=== PATIENT | male | born 1965 | race Caucasian/White ===

== ENCOUNTER 2018-08-03 11:38 | Observation (INO) | payer BC, MEDICARE ==
--- NOTE | 2018-08-03 12:09 | PCM.HP ---
H&P History of Present Illness - General Date of Service: 08/03/18 Admit Problem/Dx: Admission Diagnosis/Problem Admission Diagnosis/Problem Acute kidney injury Source of Information: Patient History Limitations: Reports: No Limitations - History of Present Illness Initial Comments - Free Text/Narative: Doris is a 52-year-old male with past medical history of hypertension, fracture status post surgery with foreign body in place in 2002. The patient is a direct admit from clinic because of elevated creatinine. Patient said he has been well until Thursday when he started having nausea, vomiting, diarrhea. His stool was watery with no blood or mucus. No fever or chills. He had several bowel movements. His oral intake decreased significantly. He could hardly hold down anything. Diarrhea and vomiting resolved on Thursday. Currently he only has dry heave. On 07/30 he saw his PCP and labs were done. His creatinine bumped up to 4.1 from 1.0. Patient was encouraged to drink more fluids and go to the ER if not feeling well. He was seen at follow up today. Repeat creatinine was 2.2. Diarrhea and vomiting has resolved, he c/o nausea, dry heaves and weakness. Hospitalist was consulted for admission for further management. Patient denies fever, chills, abdominal pain, diarrhea, constipation, skin rash. He denies difficulty with voiding. Labs from clinic; creatinine 2.2, BUN 34, potassium 3.9 , sodium 145. Duration of Symptoms: Reports: Day(s):, Improving Location: Reports: Abdomen Quality: Reports: Ache Severity: Mild Improves with: Reports: None Worsens with: Reports: None Associated Symptoms: Reports: No Other Symptoms, Loss of Appetite, Malaise, Nausea/Vomiting, Weakness - Related Data Allergies/Adverse Reactions: Allergies Allergy/AdvReac Type Severity Reaction Status Date / Time No Known Allergies Allergy Verified 08/03/18 12:04 Home Medications: Home Meds Metoprolol Succinate 50 mg PO BID 11/04/13 [History] oxyCODONE 5 mg PO BID PRN 11/04/13 [History] Ibuprofen 800 mg PO Q6HR PRN 08/03/18 [History] Ondansetron [Zofran] 4 mg PO Q8H PRN 08/03/18 [History] Social & Family History - Living Situation & Occupation Living situation: Reports: Occupation: Disabled H&P Review of Systems - Review of Systems: Review Of Systems: See Below General: Reports: Malaise, Weakness, Decreased Appetite HEENT: Reports: No Symptoms Pulmonary: Reports: No Symptoms Cardiovascular: Reports: No Symptoms Gastrointestinal: Reports: Nausea (dry heaves), Other Genitourinary: Reports: No Symptoms Musculoskeletal: Reports: No Symptoms Skin: Reports: No Symptoms Psychiatric: Reports: No Symptoms Neurological: Reports: No Symptoms Hematologic/Lymphatic: Reports: No Symptoms Immunologic: Reports: No Symptoms Exam - Exam Exam: See Below - Exam Quality Assessment: DVT Prophylaxis General: Alert, Oriented, 4 HEENT: PERRLA, Hearing Intact, Mucosa Moist & [place], Nares Patent, Normal Nasal Septum, Posterior Pharynx Clear, Conjunctiva Clear, EOMI, EACs Clear, TMs Clear Neck: Supple, Trachea Midline, 2 Lungs: Clear to Auscultation, Normal Respiratory Effort Cardiovascular: Regular Rate, Regular Rhythm GI/Abdominal Exam: Normal Bowel Sounds, Soft, Non-Tender, No Organomegaly, No Distention, No Abnormal Bruit, No Mass, Pelvis Stable (Male) Exam: No Hernia, Normal Inspection, Normal Prostate, Circumcised Rectal (Males) Exam: Normal Exam, Normal Rectal Tone, Prostate Normal Back Exam: Normal Inspection, Full Range of Motion, NT Extremities: Normal Inspection, Normal Range of Motion, Non-Tender, No Pedal Edema, Normal Capillary Refill Skin: Warm, Dry, Intact Neurological: Cranial Nerves Intact, Reflexes Equal Bilateral Neuro Extensive - Mental Status: Alert, Oriented x3, Normal Mood/Affect, Normal Cognition Neuro Extensive - Motor, Sensory, Reflexes: CN II-XII Intact, Normal Gait, Normal Reflexes Psychiatric: Alert, Normal Affect, Normal Mood - Problem List (1) MIKKI (acute kidney injury) SNOMED Code(s): 96661323 ICD Code: N17.9 - ACUTE KIDNEY FAILURE, UNSPECIFIED Status: Acute Current Visit: Yes (2) Hypertension SNOMED Code(s): 18124206 ICD Code: I10 - ESSENTIAL (PRIMARY) HYPERTENSION Status: Acute Current Visit: Yes Problem List Initiated/Reviewed/Updated: Yes Orders Last 24hrs: Active Orders 24 hr Category Date Time Status Patient Status [ADT] Routine ADT 08/03/18 11:59 Ordered Ambulate [RC] ASDIRECTED Care 08/03/18 11:59 Ordered Antiembolic Devices [RC] .Routine Care 08/03/18 12:01 Ordered Intake and Output [RC] QSHIFT Care 08/03/18 12:00 Ordered Notify Provider Vital Signs [RC] ASDIRECTED Care 08/03/18 12:00 Ordered VTE/DVT Education [RC] PER UNIT ROUTINE Care 08/03/18 12:01 Ordered Vital Signs [RC] Q4H Care 08/03/18 11:59 Ordered BASIC METABOLIC PANEL,BMP [CHEM] Q4H Lab 08/03/18 11:59 Ordered BASIC METABOLIC PANEL,BMP [CHEM] Q4H Lab 08/03/18 15:59 Ordered BASIC METABOLIC PANEL,BMP [CHEM] Q4H Lab 08/03/18 19:59 Ordered BASIC METABOLIC PANEL,BMP [CHEM] Q4H Lab 08/03/18 23:59 Ordered BASIC METABOLIC PANEL,BMP [CHEM] Q4H Lab 08/04/18 03:59 Ordered BASIC METABOLIC PANEL,BMP [CHEM] Q4H Lab 08/04/18 07:59 Ordered BASIC METABOLIC PANEL,BMP [CHEM] Q4H Lab 08/04/18 11:59 Ordered BASIC METABOLIC PANEL,BMP [CHEM] Q4H Lab 08/04/18 15:59 Ordered CREATININE,URINE RAND [URCHEM] Routine Lab 08/03/18 12:07 Ordered ELECTROLYTES, URINE Routine Lab 08/03/18 12:04 Ordered SODIUM, URINE RAND/24HR Routine Lab 08/03/18 12:08 Ordered UA W/JULIETA RFLX IF INDICATED [URIN] Routine Lab 08/03/18 12:03 Ordered Acetaminophen [Tylenol] Med 08/03/18 11:59 Ordered 650 mg PO Q6H PRN Heparin Sodium Med 08/03/18 12:00 Ordered 5,000 units SUBCUT Q12H Sodium Chloride 0.9% [Normal Saline] 1,000 ml Med 08/03/18 12:15 Ordered IV ASDIRECTED DVT/VTE Prophylaxis Reflex [OM.PC] Routine Oth 08/03/18 11:59 Ordered Resuscitation Status Routine Resus Stat 08/03/18 11:59 Ordered Assessment/Plan Comment:: Acute kidney injury Likely prerenal azotemia form dehydration due to diarrhea and vomiting versus ATN BUN/creatinine ratio 15 Patient had 2 days of nausea vomiting and diarrhea. However creatinine was elevated prior to onset of diarrhea and vomiting Diarrhea or vomiting has resolved. Creatinine improving Admit to medical floor Monitor vitals Send for urine electrolytes including a random sodium and creatinine IV fluids BMP every 4 hours Renal ultrasound Avoid all nephrotoxic agents Diarrhea, nausea, vomiting due to possible gastroenteritis Resolved Zofran when necessary for nausea and vomiting Hypertension BP within acceptable limits Continue all medications Monitor BP closely Chronic pain Continue home medications Microcytic anemia due to folate deficiency Continue folate supplementation Diet Consistent carbohydrate diet CODE STATUS Full
[2018-08-03 12:45] LABS: ANION GAP 19.8
[2018-08-03] MEDS: oxyCODONE 5 MG Tab PO PRN ×2 (12:48→18:59)
[2018-08-03] MEDS: Sodium Chloride 0.9% 1,000 ML IV SCH ×2 (12:48→20:20)
[2018-08-03] MEDS ORDERED: Sodium Chloride 0.9% 10 ML Syringe FLUSH PRN (13:39)
--- NOTE | 2018-08-03 15:12 | US ---
Clinical history: 52-year-old male with "acute kidney injury". Interpretation: Normal reniform size, axis and configuration with hilar good blood flow demonstrated bilaterally. Uniformly thick renal cortical "mantle" with increased echogenicity and prominence of the underlying renal pyramids. Right kidney measures 10.9 cm L x 5.7 cm W x 5.9 cm AP diameter. Left kidney measures 11.3 cm L x 5.4 cm W5 0.7 cm AP diameter. No discrete hypoechoic cystic or echogenic solid renal cortical mass lesions. No kidney stones or signs of obstructive uropathy i.e. no highly caliectasis and normal ureteral "jets" demonstrated bilaterally. Incompletely but symmetric distended urinary bladder. No bladder wall mass or dependent intraluminal echogenic stones.
[2018-08-03] MEDS: Ondansetron 4 MG/2 ML SDV IV PRN ×2 (15:37→23:16)
[2018-08-03] MEDS: Metoprolol Tartrate 50 MG Tab PO SCH ×2 (16:32→20:22)
[2018-08-03] MEDS: Heparin Sodium 5,000 Units/ML Vial SUBCUT SCH (20:28)
[2018-08-03] MEDS ORDERED: Metoprolol Succinate 25 MG Tab.ER PO SCH (21:00)
[2018-08-03] MEDS ORDERED: cloNIDine 0.1 MG Tab PO PRN (23:37)
[2018-08-04 01:30] LABS: ANION GAP 16.5
[2018-08-04] MEDS ORDERED: LORazepam 0.5 MG Tab PO ONE (02:05)
[2018-08-04] MEDS: hydrALAZINE 25 MG Tab PO PRN ×2 (02:23→16:16)
[2018-08-04] MEDS: Sodium Chloride 0.9% 1,000 ML IV SCH ×2 (05:12→19:05)
[2018-08-04 07:07] LABS: ANION GAP 14.4
[2018-08-04] MEDS: oxyCODONE 5 MG Tab PO PRN ×2 (07:28→14:30)
[2018-08-04] MEDS: Metoprolol Tartrate 50 MG Tab PO SCH ×2 (08:59→20:42)
[2018-08-04] MEDS: Heparin Sodium 5,000 Units/ML Vial SUBCUT SCH ×2 (09:00→20:43)
[2018-08-04] MEDS: Ondansetron 4 MG/2 ML SDV IV PRN (09:03)
[2018-08-04] MEDS ORDERED: Potassium Chloride 10 MEQ Tab.ER PO ONE (09:23)
--- NOTE | 2018-08-04 11:05 | PCM.PN ---
- General Info Date of Service: 08/04/18 Admission Dx/Problem (Free Text): The patient blood pressure remains elevated. He was given clonidine. Indicates that he has some nausea. He thinks that it might be due to the clonidine. Also indicates that he has been feeling short of breath. Denies having chest pain. - Review of Systems General: Reports: Weakness, Malaise Pulmonary: Reports: Shortness of Breath Cardiovascular: Reports: No Symptoms Gastrointestinal: Reports: Decreased Appetite, Nausea Musculoskeletal: Reports: No Symptoms - Patient Data Vitals - Most Recent: Last Vital Signs Temp 36.6 C 08/04/18 07:52 Pulse 95 08/04/18 08:59 Resp 20 08/04/18 07:52 BP 153/93 H 08/04/18 08:59 Pulse Ox 96 08/04/18 07:52 Weight - Most Recent: 89.358 kg I&O - Last 24 Hours: Intake & Output 08/03/18 08/04/18 08/04/18 22:59 06:59 14:59 Intake Total 1357 994 150 Output Total 1050 1200 750 Balance 307 -206 -600 Lab Results Last 24 Hours: Laboratory Results - last 24 hr 08/03/18 08/03/18 08/03/18 Range/Units 12:20 14:00 14:00 Sodium 139 (135-145) mmol/L Potassium 3.8 (3.6-5.0) mmol/L Chloride 106 D (101-111) mmol/L Carbon Dioxide 17.0 L (21.0-31.0) mmol/L Anion Gap 19.8 BUN 34 H (7-18) mg/dL Creatinine 2.1 H D (0.6-1.3) mg/dL Est Cr Clr Drug Dosing 44.65 mL/min Estimated GFR (MDRD) 33 Glucose 83 (74-105) mg/dL Calcium 7.7 L D (8.4-10.2) mg/dl Urine Color Yellow (YELLOW) Urine Appearance Clear (CLEAR) Urine pH 5.5 (5.0-9.0) Ur Specific Jay 1.010 (1.005-1.030) Urine Protein Negative (NEGATIVE) Urine Glucose (UA) Negative (NEGATIVE) Urine Ketones Negative (NEGATIVE) Urine Occult Blood Negative (NEGATIVE) Urine Nitrite Negative (NEGATIVE) Urine Bilirubin Negative (NEGATIVE) Urine Urobilinogen 0.2 (0.2-1.0) mg/dL Ur Leukocyte Esterase Negative (NEGATIVE) Ur Random Creatinine 72 mg/dL Ur Random Sodium (40-220) mmol/L Ur Random Potassium mmol/L Ur Random Chloride (110-250) mmol/24H Ur Random Calcium (100-300) mg/dL 08/03/18 08/04/18 08/04/18 Range/Units 14:00 01:05 06:30 Sodium 138 138 (135-145) mmol/L Potassium 3.5 L 3.4 L (3.6-5.0) mmol/L Chloride 106 107 (101-111) mmol/L Carbon Dioxide 19.0 L 20.0 L (21.0-31.0) mmol/L Anion Gap 16.5 14.4 BUN 28 H 27 H (7-18) mg/dL Creatinine 1.8 H 1.8 H (0.6-1.3) mg/dL Est Cr Clr Drug Dosing 52.09 52.09 mL/min Estimated GFR (MDRD) 40 40 Glucose 99 93 (74-105) mg/dL Calcium 7.8 L 7.6 L (8.4-10.2) mg/dl Urine Color (YELLOW) Urine Appearance (CLEAR) Urine pH (5.0-9.0) Ur Specific Jay (1.005-1.030) Urine Protein (NEGATIVE) Urine Glucose (UA) (NEGATIVE) Urine Ketones (NEGATIVE) Urine Occult Blood (NEGATIVE) Urine Nitrite (NEGATIVE) Urine Bilirubin (NEGATIVE) Urine Urobilinogen (0.2-1.0) mg/dL Ur Leukocyte Esterase (NEGATIVE) Ur Random Creatinine mg/dL Ur Random Sodium 85 (40-220) mmol/L Ur Random Potassium 15.0 mmol/L Ur Random Chloride 79 L (110-250) mmol/24H Ur Random Calcium 1.9 L (100-300) mg/dL Med Orders - Current: Current Medications Acetaminophen (Tylenol) 650 mg PO Q6HR PRN PRN Reason: Pain (mild 1-3 )/fever Clonidine HCl (Catapres) 0.1 mg PO Q4H PRN PRN Reason: Hypertension Last Admin: 08/04/18 00:01 Dose: 0.1 mg Heparin Sodium (Porcine) (Heparin Sodium) 5,000 units SUBCUT Q12HR [facility] Last Admin: 08/04/18 09:00 Dose: 5,000 units Hydralazine HCl (Apresoline) 25 mg PO Q8H PRN PRN Reason: Other Last Admin: 08/04/18 02:23 Dose: 25 mg Sodium Chloride (Normal Saline) 1,000 mls @ 75 mls/hr IV ASDIRECTED [facility] Last Admin: 08/04/18 05:12 Dose: 75 mls/hr Metoprolol Tartrate (Lopressor) 50 mg PO BID [facility] Last Admin: 08/04/18 08:59 Dose: 50 mg Ondansetron HCl (Zofran) 4 mg IV Q8HR PRN PRN Reason: Nausea Last Admin: 08/04/18 09:03 Dose: 4 mg Oxycodone HCl (Oxycodone) 5 mg PO BID PRN PRN Reason: neck pain Last Admin: 08/04/18 07:28 Dose: 5 mg Sodium Chloride (Saline Flush) 10 ml FLUSH ASDIRECTED PRN PRN Reason: Keep Vein Open Discontinued Medications Sodium Chloride (Normal Saline) 1,000 mls @ 125 mls/hr IV ASDIRECTED [facility] Last Infusion: 08/04/18 02:15 Dose: 75 mls/hr Lorazepam (Ativan) 0.5 mg PO ONETIME ONE Stop: 08/04/18 02:06 Last Admin: 08/04/18 02:23 Dose: 0.5 mg Metoprolol Succinate (Toprol Xl) 50 mg PO BID [facility] Potassium Chloride (Klor-Con 10) 40 meq PO ONETIME ONE Stop: 08/04/18 09:24 Last Admin: 08/04/18 09:55 Dose: 40 meq - Exam General: Alert, Oriented HEENT: Pupils Equal, Pupils Reactive, EOMI, Mucous Membr. Moist/[place] Neck: Supple Lungs: Clear to Auscultation, Normal Respiratory Effort Cardiovascular: Regular Rate, Regular Rhythm GI/Abdominal Exam: Normal Bowel Sounds, Soft, Non-Tender, No Organomegaly, No Distention, No Abnormal Bruit, No Mass, Pelvis Stable - Problem List Review Problem List Initiated/Reviewed/Updated: Yes - My Orders Last 24 Hours: My Active Orders 08/03/18 23:37 cloNIDine [Catapres] 0.1 mg PO Q4H PRN 08/04/18 02:15 Sodium Chloride 0.9% [Normal Saline] 1,000 ml IV ASDIRECTED - Plan Plan:: Acute kidney injury Likely prerenal azotemia form dehydration due to diarrhea and vomiting versus ATN Patient had 2 days of nausea vomiting and diarrhea. However creatinine was elevated prior to onset of diarrhea and vomiting Diarrhea or vomiting has resolved. Creatinine improving Obtain repeat visit metabolic panel Diarrhea, nausea, vomiting due to possible gastroenteritis Resolved Zofran when necessary for nausea and vomiting BMP in AM Hypertension BP within acceptable limits Continue all medications Chronic pain Continue home medications Microcytic anemia due to folate deficiency Continue folate supplementation Diet Consistent carbohydrate diet CODE STATUS Full
[2018-08-04 12:12] LABS: ANION GAP 14.9
[2018-08-04] MEDS: Acetaminophen 325 MG Tab PO PRN (17:12)
[2018-08-04] MEDS ORDERED: hydrALAZINE 25 MG Tab PO STA (19:12)
[2018-08-04] MEDS: Albuterol/Ipratropium 3.0-0.5 MG/3 ML Neb Soln NEB PRN (19:33)
[2018-08-04] MEDS: LORazepam 0.5 MG Tab PO PRN (20:48)
[2018-08-05] MEDS: hydrALAZINE 25 MG Tab PO PRN (03:14)
[2018-08-05] MEDS ORDERED: amLODIPine 5 MG Tab PO STA (05:17)
[2018-08-05] MEDS: oxyCODONE 5 MG Tab PO PRN ×2 (06:45→13:53)
[2018-08-05 07:17] LABS: ANION GAP 17.5
[2018-08-05] MEDS: Potassium Chloride 10 MEQ Tab.ER PO SCH ×2 (09:30→17:21)
[2018-08-05] MEDS: amLODIPine 5 MG Tab PO SCH (09:30)
[2018-08-05] MEDS: Metoprolol Tartrate 25 MG Tab PO SCH ×2 (09:31→20:53)
[2018-08-05] MEDS: Heparin Sodium 5,000 Units/ML Vial SUBCUT SCH ×2 (09:32→20:54)
[2018-08-05] MEDS: Acetaminophen 325 MG Tab PO PRN ×2 (09:43→19:51)
--- NOTE | 2018-08-05 11:33 | PN ---
DATE: 08/05/2018 SUBJECTIVE: Mr. Jana Yi is a 52-year-old male with a medical history significant for hypertension, admitted with complaints of nausea, vomiting, diarrhea leading to acute renal failure with creatinine up to 4.1 at the time of admission. For the last 24 hours, the patient was continued on IV fluids. He had complaints of chest tightness overnight. He denies any nausea or vomiting. Denies any diarrhea. No abdominal pain. No chest pains this morning. No cough with sputum this morning. MEDICATIONS: Reviewed. 1. Continue Tylenol 650 every 6 hours as needed. 2. Norvasc 5 mg daily. 3. Heparin 1000 subcutaneous q.12 hourly. 4. Metoprolol changed to 75 mg twice a day. 5. Oxycodone 5 mg twice a day as needed. 6. Potassium chloride 20 mEq twice a day. REVIEW OF SYSTEMS: Cardiovascular, respiratory, gastrointestinal, neurology, constitutional were all evaluated. PHYSICAL EXAMINATION: Vitals Signs: Temperature of 99.4, pulse of 98, blood pressure 174/107, respiratory rate of 20, and saturating at 96% on 2 L of oxygen. General Appearance: The patient is well oriented to time, place, and person. Follows commands spontaneously. Cardiovascular System: S1, S2 heard with normal intensity. No gallops. Respiratory System: Clear to auscultation bilaterally. Mild crepitations at the bases. No wheeze. Abdomen: Soft. Bowel sounds positive. Nontender. No rigidity. Extremities: No edema, bilateral lower extremities. Neurologic: No gross focal neurological deficit. LABORATORY DATA: Sodium 137, potassium 3.5, chloride 104, bicarb 19, BUN 19, creatinine 1.5, glucose 88. ASSESSMENT: 1. Acute renal failure. 2. Gastroenteritis with nausea, vomiting, and diarrhea, resolved. 3. Hypokalemia. 4. Hypertension, uncontrolled. PLAN: 1. Acute renal failure. The patient was admitted with increasing creatinine. His creatinine is much improved to 1.5 at this time. We will discontinue the IV fluids. Avoid nephrotoxic agents. Dose adjust medications for renal function. 2. Hypertension, uncontrolled. The patient noted to have elevated blood pressure. We will increase the metoprolol to 75 mg twice a day and add Norvasc 5 mg once daily for better control of the blood pressure. This could also be resulting from IV fluids. We will discontinue the IV fluids for now. 3. Hypokalemia. We will replace with oral potassium chloride. He received 40 mEq once. We will have him on 20 mEq twice a day. We will recheck a basic metabolic panel in a.m. 4. DVT prophylaxis. Continue with heparin for DVT prophylaxis. [facility] /[id number]
[2018-08-05] MEDS: Albuterol/Ipratropium 3.0-0.5 MG/3 ML Neb Soln NEB PRN (18:07)
[2018-08-05] MEDS: LORazepam 0.5 MG Tab PO PRN (20:52)
[2018-08-06 06:27] LABS: ANION GAP 16.2
[2018-08-06] MEDS: oxyCODONE 5 MG Tab PO PRN ×2 (07:26→12:56)
[2018-08-06] MEDS: Metoprolol Tartrate 25 MG Tab PO SCH (09:08)
[2018-08-06] MEDS: Potassium Chloride 10 MEQ Tab.ER PO SCH (09:11)
[2018-08-06] MEDS: amLODIPine 5 MG Tab PO SCH (09:12)
[2018-08-06] MEDS: Heparin Sodium 5,000 Units/ML Vial SUBCUT SCH (09:13)
[2018-08-06] MEDS: Acetaminophen 325 MG Tab PO PRN (10:17)
--- NOTE | 2018-08-07 04:40 | DISCH ---
ADMITTING DIAGNOSES: 1. Acute renal failure. 2. Nausea, vomiting, diarrhea with gastroenteritis. 3. Hypertension. 4. Chronic opioid use and continued use. DISCHARGE DIAGNOSES: 1. Acute renal failure, resolved. 2. Dehydration, resolved with IV fluids. 3. Acute gastroenteritis, possible viral, resolved. 4. Hypokalemia, on potassium chloride supplement. 5. Hypertension, uncontrolled, needing dose adjustment of medications. Increase the metoprolol to 75 mg twice a day and add Norvasc 5 mg once a day. HISTORY OF PRESENTING ILLNESS: Mr. Federico Bates is a 52-year-old male with medical history significant for hypertension and hyperlipidemia, who was admitted to the hospital as a direct admit from the clinic where he was noted to have acute renal failure. On 07/30, he saw his primary care physician. Labs were done. His creatinine was up to 4.1 from 1. The patient was encouraged to drink more fluids and go to the ER if not feeling well. The patient presented back to the ER as he was not feeling well. He was continued to have nausea, vomiting and diarrhea consistent with acute gastroenteritis, and his creatinine was 2.2. So, the patient was admitted to the hospital for continued IV fluids. He responded well to the treatment. He was noted to have mild hypokalemia requiring a potassium chloride supplement. He is discharged home in stable condition. He is advised to follow up with his primary care physician in the next 1 week of time. He was noted to have uncontrolled hypertension with elevated blood pressure up to 170 systolic. The patient's metoprolol was increased to 75 mg twice a day and added Norvasc for better control of the blood pressure, after which his blood pressure improved to 138/91. DISCHARGE MEDICATIONS: Include, 1. Metoprolol 75 mg twice a day. 2. Ondansetron 4 mg oral every 8 hours as needed for nausea. 3. Potassium chloride 20 mEq twice a day. 4. Norvasc 5 mg daily. 5. Oxycodone 5 mg twice a day. The patient is advised to hold his ibuprofen secondary to acute renal failure. PHYSICAL EXAMINATION ON THE DAY OF DISCHARGE: Vital Signs: Temperature of 98.9, pulse of 96, blood pressure of 138/91, respiratory rate of 18, and saturating at 95% on room air. General Appearance: The patient is alert, oriented to time, place, and person; follows commands spontaneously. Cardiovascular System: S1, S2 heard with normal intensity. No gallops. Respiratory System: Clear to auscultation bilaterally. No wheezes. No crepitations. Abdomen: Soft. Bowel sounds positive. Nontender. No rigidity. Extremities: No edema in bilateral lower extremities. Neurologic: No gross focal neurological deficits. CONDITION ON ADMISSION: Poor. CONDITION ON DISCHARGE: Stable. DISPOSITION: Discharged to home. ACTIVITY: As tolerated. DIET: Cardiac healthy diet. FOLLOWUP: Follow up with primary care physician in the next 1 week of time. I spent over 35 minutes of time in evaluating and treating this patient and making discharge plans. [facility] /[id number]
== END 2018-08-06 14:00 | disposition home or self-care (01) ==
LOC: DL.MS 11:51 → UNDOADMOB 11:51 → DL.MS 11:59
PROVIDERS: ADMIT Student in an Organized Health Care Education/Training Program; ATTEND Student in an Organized Health Care Education/Training Program
DX: N17.9 Acute kidney failure, unspecified (principal); E86.0 Dehydration; K52.9 Noninfective gastroenteritis and colitis, unspecified; E87.6 Hypokalemia; I10 Essential (primary) hypertension; E78.5 Hyperlipidemia, unspecified; D52.9 Folate deficiency anemia, unspecified; G89.29 Other chronic pain; Z79.899 Other long term (current) drug therapy
CPT/HCPCS: 36415; 71045; 76770; 80048; 81003; 82340; 82436; 82570; 84133; 84300; 84484; 85027; 94760; 96360; 96361; 96372; 96375; 96376; A9270; G0378; G0379; J1644; J2405; J7030; J7620-GY

== ENCOUNTER 2019-02-17 06:57 | Day surgery (SDC) | payer BC, MEDICARE ==
[~2019-02-17 06:57] MED LIST: Dextrose 5%-0.45% NaCl 1,000 ML IV SCH; Midazolam 1 MG/ML 2 ML SDV ONE; Sodium Chloride 0.9% 10 ML Syringe FLUSH PRN; fentaNYL 100 MCG/2 ML SDV ONE
[2019-02-17] MEDS ORDERED: Midazolam 1 MG/ML 2 ML SDV IV ONE (06:58)
[2019-02-17] MEDS ORDERED: fentaNYL 100 MCG/2 ML SDV IV ONE (06:58)
[2019-02-17] MEDS: Dextrose 5%-0.45% NaCl 1,000 ML IV SCH (07:15)
[2019-02-17] MEDS: fentaNYL 100 MCG/2 ML SDV IV ONE ×2 (07:37→07:38)
[2019-02-17] MEDS: Midazolam 1 MG/ML 2 ML SDV IV ONE ×6 (07:38→07:44)
--- NOTE | 2019-02-17 09:41 | OR ---
DATE: 02/17/2019 PROCEDURE: Total colonoscopy. INSTRUMENT USED: [id number]-[id number] Olympus video colonoscope. PREMEDICATIONS: Fentanyl 100 mcg intravenous, Versed 4 mg intravenous. The procedure was done under pulse oximetry, BP recording, and surveillance system monitor. INDICATION: Screening colonoscopic examination is done for detection of any polypoid lesions and removal, endoscopic hemostasis therapy if needed. DESCRIPTION OF PROCEDURE: Initial rectal exam was unremarkable. Rigid anoscopy was normal. The colonoscope was passed with ease up to the ileocecal area. Photographs were taken of the normal-appearing cecum identified by landmarks of appendiceal orifice and double-bulged ileocecal folds. No bleeding was noted from any of the visualized areas at the commencement of the examination. The bowel preparation was found to be adequate, [place] scale 2 in all the regions. No stricture. No vascular ectasia. No large isolated ulcerations seen. No evidence of diffuse inflammatory bowel disease in the form of friability, contact bleeding, or ulcerations. No polyp or tumor mass identified. Probing the proximal sides of folds and flexures using adequate distention and clearing up the stool material, withdrawal of the scope was made. Cecum to rectum time over 6 minutes. No bleeding was noted from any of the visualized areas at the completion of the examination. IMPRESSION: Normal study. The patient tolerated the procedure well. [facility] /[id number]
== END 2019-02-17 09:55 | disposition home or self-care (01) ==
LOC: DL.ENDO 06:57
PROVIDERS: ATTEND Internal Medicine Gastroenterology
DX: R10.9 Unspecified abdominal pain (principal); R10.13 Epigastric pain; K59.00 Constipation, unspecified; I10 Essential (primary) hypertension; E78.1 Pure hyperglyceridemia; E66.09 Other obesity due to excess calories; M21.371 Foot drop, right foot
CPT/HCPCS: 45378; J2250; J3010; J7042; G0121